=== PATIENT | female | born 1985 | race Caucasian/White ===

== ENCOUNTER 2017-08-26 11:47 | Emergency (ER) | payer OTHER ==
[~2017-08-26] VITALS: Ht 157.5 cm; Wt 60.0 kg
[2017-08-26 11:58] VITALS: BP 111/74; PULSE 71; TEMP 98.2
[2017-08-26 13:04] LABS: BASO % 0.5 % (0.0-2.0); EOS # 0.1 (0.0-0.7); EOS % 1.9 % (0-4.0); HEMOGLOBIN 13.5 g/dl (12.5-16.0); LYMPH # 1.3 (1.2-3.4); LYMPH % 21.9 % (20.0-51.0); MEAN CELL VOLUME 84 fl (80.0-100.0); MEAN CORPUSCULAR HEMOGLOBIN 30 pg (27.0-31.0); MEAN CORPUSCULAR HGB CONC 36 g/dl (33.0-37.0); MEAN PLATELET VOLUME 10.2 fl (7.4-10.4); MONO # 0.4 (0.1-0.6); MONO % 6.4 % (1.7-9.3); PLATELET COUNT 252 K/mm3 (130-400); RED BLOOD COUNT 4.55 M/mm3 (4.10-5.30); REDCELL DISTRIBUTION WIDTH-CV 11.5 % (11.5-14.5)
[2017-08-26 13:11] LABS: COLLECTION METHOD CLEAN CATCH
[2017-08-26 13:16] LABS: PH 8 (5-8); SQUAMOUS EPITHELIAL 0-2 /hpf; URINE APPEARANCE Clear; URINE BACTERIA None Seen /hpf; URINE BILIRUBIN Negative (NEGATIVE); URINE BLOOD 2+ (NEGATIVE); URINE COLOR Colorless; URINE GLUCOSE Negative (NEGATIVE); URINE KETONE Negative (NEGATIVE); URINE LEUKOCYTE ESTERASE Negative (NEGATIVE); URINE NITRATE Negative (NEGATIVE); URINE PROTEIN(semi-quant) Negative (NEGATIVE); URINE RBC 0-2 /hpf; URINE UROBILINOGEN Negative (NEGATIVE)
[2017-08-26 13:18] LABS: ALANINE AMINOTRANSFERASE 34 U/L (9-52); ALBUMIN 4.1 gm/dL (3.5-5.0); ALKALINE PHOSPHATASE 54 U/L (50-136); ANION GAP 13 mmol/L (7-16); AST,SGOT 22 U/L (15-37); BILIRUBIN,TOTAL 0.5 mg/dL (0.0-1.0); BLOOD UREA NITROGEN 10 mg/dL (7-17); CALCIUM 9.2 mg/dL (8.4-10.2); CARBON DIOXIDE 28 mmol/L (22-30); CHLORIDE 103 mmol/L (98-107); CREATININE, serum 0.68 mg/dL (0.52-1.25); GLUCOSE 87 mg/dL (74-106); POTASSIUM 3.8 mmol/L (3.4-5.0); SODIUM 143 mmol/L (137-145); TOTAL PROTEIN 7.8 gm/dL (6.4-8.2)
[2017-08-26 13:25] LABS: C-REACTIVE PROTEIN < 0.5 mg/dL (0.0-0.9)
[2017-08-26 13:28] LABS: ERYTHROCYTE SEDIMENTATION RATE 7 mm/hr (0-20)
[2017-08-26] MEDS ORDERED: MIDRIN 325 MG-11 CAP PO (13:58)
[2017-08-26] MEDS ORDERED: PHENERGAN 25 TA25 MG PO (16:41)
[2017-08-26] MEDS ORDERED: ZOFRAN ODT4 MG PO (16:41)
== END 2017-08-26 17:07 | disposition home or self-care (01) ==
LOC: COL.ER 11:47
PROVIDERS: Physician Assistant
DX: G43.909 Migraine, unspecified, not intractable, without status migrainosus (principal); R11.2 Nausea with vomiting, unspecified
CPT/HCPCS: A9585; J7030

== ENCOUNTER 2018-05-30 02:47 | Emergency (ER) | payer OTHER ==
[~2018-05-30] VITALS: Ht 157.5 cm; Wt 77.7 kg
[~2018-05-30 02:47] MED LIST: MIDRIN 325 MG-11 CAP PO; PHENERGAN 25 TA25 MG PO; ZOFRAN ODT4 MG PO
[2018-05-30 02:51] VITALS: TEMP 96.9
--- NOTE | 2018-05-30 03:56 | NUR ---
3165- THIS NURSE IN ROOM WITH PT. PT DENIES ANY LOF/VB OR CONTRACTIONS AT THIS TIME, DENIES COMPLICATIONS WITH THE . STATES THIS IS HER 2ND BABY AND SHE IS DUE TOMORROW. CURRENTLY DOCTORS AT [facility]. EFM APPLIED. 0350- REACTIVE FHT NOTED. IRREGULAR CONTRACTIONS EVERY 2-5 MINUTES LASTING 60-110 SECONDS. ER DOCTOR IN ROOM, PLANS TO START IV AND GIVE FLUIDS AND ZOFRAN. 0356- NOTIFIED DR. CALLEJAS OF PT ARRIVAL WITH COMPLAINTS OF N/V, ALSO NOTIFIED OF HX. PT HAS APPOINTMENT WITH HER OB ON POST AT 0800 TODAY. REASSURING FHT'S AND IRREGULAR CONTRACTIONS EVERY 2-5. PT DENIES ANY LOF/VB, STATES CONTRACTIONS FEEL LIKE TIGHTENING OR MOVEMENT BUT AREN'T PAINFUL. ER POC TO START IV AND GIVE FLUIDS AND ZOFRAN. DR. CALLEJAS STATES SVE NOT NECESSARY AND ER CAN CONTINUE WITH THEIR POC.
[2018-05-30] MEDS ORDERED: PRENATAL MVI PO (04:27)
[2018-05-30] MEDS ORDERED: OSCAL 500 TAB500 MG PO (04:27)
[2018-05-30 04:39] LABS: COLLECTION METHOD CLEAN CATCH
[2018-05-30 04:49] LABS: MUCOUS Present /lpf; PH 6 (5-8); URINE APPEARANCE Hazy; URINE BACTERIA Rare /hpf; URINE BILIRUBIN Negative (NEGATIVE); URINE BLOOD Negative (NEGATIVE); URINE COLOR Yellow; URINE GLUCOSE Negative (NEGATIVE); URINE KETONE Negative (NEGATIVE); URINE LEUKOCYTE ESTERASE 1+ (NEGATIVE); URINE NITRATE Negative (NEGATIVE); URINE PROTEIN(semi-quant) 1+ (NEGATIVE); URINE RBC 0-2 /hpf; URINE UROBILINOGEN >=4.0 mg/dL (NEGATIVE)
[2018-05-30] MEDS ORDERED: CEPHALEXIN500 M1 PO (05:15)
[2018-05-30 06:00] VITALS: BP 107/62; PULSE 86
== END 2018-05-30 06:00 | disposition home or self-care (01) ==
LOC: COL.ER 02:47
PROVIDERS: Emergency Medicine
DX: O21.9 Vomiting of pregnancy, unspecified (principal); O26.893 Other specified pregnancy related conditions, third trimester; R00.1 Bradycardia, unspecified; Z3A.19 19 weeks gestation of pregnancy
CPT/HCPCS: J2405; J7030

== ENCOUNTER 2018-06-04 21:14 | Inpatient (IN) | payer OTHER ==
[~2018-06-04] VITALS: Ht 157.5 cm; Wt 77.3 kg
[~2018-06-04 21:14] MED LIST changes: +CEPHALEXIN500 M1 PO; +OSCAL 500 TAB500 MG PO; +PRENATAL MVI PO
[2018-06-04 21:32] VITALS: BP 111/71; PULSE 71; TEMP 97.6
--- NOTE | 2018-06-04 22:00 | NUR ---
2124- Patient ambulatory to LDR-6 with intraoperative neuro tech. Patient oriented to room. Patient into restroom to change into gown. 2127- EFM and TOCO on and tracing. [facility] patient. Patient has complaints of contractions every 5-7 minutes with increased intensity since losing her mucus plug at 1940 this evening. Patient was seen at [facility] today for decreased movement and contractions every 2-5 minutes. Patient denies having any cervical checks this . Patient denies LOF, bleeding, or spotting. SVE 4-5/80/-1. Patient did not tolerate cervical check well and was moving all around the bed because she was very uncomfortable. Assessment completed. VSS 2149- updated.
[2018-06-04 23:00] VITALS: BP 107/69; PULSE 74
[2018-06-04 23:30] VITALS: BP 115/54; PULSE 80
[2018-06-04 23:45] VITALS: BP 120/59; PULSE 86
[2018-06-05] VITALS (9 sets, daily range): BP systolic 91–120; BP diastolic 47–71; PULSE 60–79; TEMP 97.1–98
--- NOTE | 2018-06-05 | NUR ---
2230- SVE /-1. Orders to admit from . Patient is still extremely uncomfortable with cervical exams. [employer] Transactions Attorney at bedside. Patient off monitor to ambulate room and utilize birthing ball. FHT reassuring. Patient is requesting whirlpool at this time. aircraft engine technician notified. 5- RN at bedside. Patient in restroom with . states patient had a bowel movement and patient is visibly bearing down at this time. RN told patient that she needs to return to bed and we need to attach EFM and TOCO and do a cervical exam. Patients was very marte and states "no more exams, you cannot touch her!" Patient back to bed with assist of 2. appliquer zigzag called to bedside. 2252- Patient back in bed. EFM and TOCO on and tracing intermittently due to maternal positioning. RN tries for SVE but pushes hand away and refuses to let RN touch patient. appliquer zigzag, Daniel, at bedside. 2253- called and updated. Asked MD to come to hospital for delivery. 2254- SVE Complete/+1 by AKIRA Sanchez. FHT deceleration into the 60's noted. O2 applied. IV access unsuccessful. No IVF infusing. 2315- at bedside. updated. 2326- of viable baby boy. Meconium fluid noted. Cord clamped and cut by . Cord blood obtained. Cord gasses obtained. 2330- Spontaneous delivery of placenta. Fundus massaged to firm. Pitocin IM given. See eMAR. 2nd degree perineal laceration repaired by MD. Local anesthetic used during repair. Pericare provided. Ice pack applied.
[2018-06-05 00:57] LABS: BASO % 0.1 % (0.0-2.0); EOS % 0.1 % (0-4.0); GRAN # 11.4 (1.4-6.5); GRAN % 85.7 % (42.2-75.2); HEMOGLOBIN 11.6 g/dl (12.5-16.0); LYMPH # 1.2 (1.2-3.4); MEAN CELL VOLUME 84 fl (80.0-100.0); MEAN CORPUSCULAR HEMOGLOBIN 29 pg (27.0-31.0); MEAN CORPUSCULAR HGB CONC 34 g/dl (33.0-37.0); MEAN PLATELET VOLUME 11.2 fl (7.4-10.4); MONO # 0.6 (0.1-0.6); MONO % 4.6 % (1.7-9.3); PLATELET COUNT 221 K/mm3 (130-400); RED BLOOD COUNT 4.07 M/mm3 (4.10-5.30); REDCELL DISTRIBUTION WIDTH-CV 13.1 % (11.5-14.5)
[2018-06-05 01:02] LABS: HEMATOCRIT 34.1 % (37.0-47.0)
[2018-06-05] MEDS ORDERED: PERCOCET 325 MG1 TA2 PO (09:17)
[2018-06-05] MEDS ORDERED: IBU600 MG PO (09:17)
--- NOTE | 2018-06-05 10:04 | NUR ---
Initial visit; Parents thanked Handle And Vent Machine Operator for offering congratulations and God's blessings for the of their son. Handle And Vent Machine Operator thanked Them for choosing [place].
[2018-06-06 07:00] VITALS: BP 92/59; PULSE 97
--- NOTE | 2018-06-06 10:30 | NUR ---
DISCHARGE EDUCATION REVIEWED, PATIENT STATES UNDERSTANDING, DENIES QUESTIONS.
== END 2018-06-06 10:25 | disposition home or self-care (01) | DRG 807 ==
LOC: LDRO 21:14 → LDR 22:02 → LDRO 22:45 → LDR 22:46 → OB 22:46
PROVIDERS: ADMIT Obstetrics & Gynecology
PROC: 10E0XZZ Delivery of Products of Conception, External Approach (ICD-10-PCS; principal; 2018-06-04)
PROC: 0KQM0ZZ Repair Perineum Muscle, Open Approach (ICD-10-PCS; 2018-06-04)
DX: O77.0 Labor and delivery complicated by meconium in amniotic fluid (principal); Z37.0 Single live birth; Z3A.40 40 weeks gestation of pregnancy; O70.1 Second degree perineal laceration during delivery; O69.81X0 Labor and delivery complicated by cord around neck, without compression, not applicable or unspecified; O62.3 Precipitate labor
CPT/HCPCS: J2590